=== PATIENT | male | born 1980 | race Caucasian/White ===

== ENCOUNTER 2021-08-23 11:11 | Emergency (ER) | payer OTHER, SELFPAY ==
[2021-08-23 11:22] VITALS: BP 178/98; PULSE 85; RESP 16; TEMP 36.2; O2SAT 98
--- NOTE | 2021-08-23 11:40 | PC.NURSE ---
Report given to provider, eye kit removed per verbal order.
--- NOTE | 2021-08-23 11:58 | ED.EYEPROB ---
HPI - Eye Problem General Chief complaint: Eye Problems Stated complaint: right eye injury Source: patient and RN notes reviewed Mode of arrival: ambulatory Limitations: no limitations History of Present Illness HPI Narrative: Patient left before being seen by provider after being triaged chief complaint: eye pain Related Data Home Medications Medication Instructions Recorded Confirmed No Home Medications 08/23/21 08/23/21 Allergies Allergy/AdvReac Type Severity Reaction Status Date / Time No Known Allergies Allergy Verified 08/23/21 11:26 Review of Systems Review of Systems: Unable to obtain review of systems, left without being seen by provider PMFSH Comments Left without being seen Exam Narrative: Patient left that being seen by provider Course Course Emergency Course: Patient is aware of diagnosis, understands and agrees to treatment plan. Anticipatory guidance given. Patient agrees to follow-up as directed and is aware of reasons to seek care at the emergency department. Portions of this record may have been created with voice recognition software Level of Care: Express Care Visit Vital Signs Vital signs: Vital Signs Temperature 97.1 F L 08/23/21 11:22 Pulse Rate 85 08/23/21 11:22 Respiratory Rate 16 08/23/21 11:22 Blood Pressure 178/98 H 08/23/21 11:22 Pulse Oximetry 98 08/23/21 11:22 Temperature 97.1 F L 08/23/21 11:22 Pulse Rate 85 08/23/21 11:22 Respiratory Rate 16 08/23/21 11:22 Blood Pressure 178/98 H 08/23/21 11:22 Pulse Oximetry 98 08/23/21 11:22 Reviewed. Critical Care Time Critical Care Time Critical Care Time: No Discharge Plan Discharge Clinical Impression: Acute eye pain Patient Disposition: Left Without Being Sn Triaged Prescriptions: No Action No Home Medications RF: 0 Follow-up/Referrals: UNKNOWN,DOCTOR [Primary Care Provider] - Time of Disposition: 11:59
--- NOTE | 2021-08-23 11:59 | PC.NURSE ---
Pt left without being seen by provider.
== END 2021-08-23 12:01 | disposition left against medical advice (07) ==
PROVIDERS: Emergency Provider Nurse Practitioner
DX: Z53.21 Procedure and treatment not carried out due to patient leaving prior to being seen by health care provider (principal)
CPT/HCPCS: 99199; A9270